=== PATIENT | male | born 1960 | race Caucasian/White ===

== ENCOUNTER 2022-02-01 09:15 | Day surgery (SDC) | payer OTHER ==
[~2022-02-01] VITALS: Ht 172.7 cm; Wt 99.8 kg
[2022-02-01] MEDS ORDERED: fentaNYL citrate 0.05 MG/ML VIAL ONE (10:39)
[2022-02-01] MEDS ORDERED: LIDOCAINE 2% 100 MG/5 ML UJET TP ONE (10:39)
[2022-02-01] MEDS ORDERED: fentaNYL citrate 0.05 MG/ML VIAL IVP ONE (12:35)
== END 2022-02-01 12:15 | disposition home or self-care (01) ==
LOC: MDS 09:15 → MMU 09:16 → MDS 12:15
PROVIDERS: ATTEND Internal Medicine Gastroenterology
DX: R19.5 Other fecal abnormalities (principal); K57.30 Diverticulosis of large intestine without perforation or abscess without bleeding; Z80.0 Family history of malignant neoplasm of digestive organs; I10 Essential (primary) hypertension; E11.9 Type 2 diabetes mellitus without complications; E78.00 Pure hypercholesterolemia, unspecified; Z86.73 Personal history of transient ischemic attack (TIA), and cerebral infarction without residual deficits; Z79.899 Other long term (current) drug therapy
CPT/HCPCS: 45378; J3010